=== PATIENT | female | born 1975 | race Caucasian/White ===

== ENCOUNTER 2021-01-27 14:51 | Emergency (ER) | payer OTHER, SELFPAY ==
--- NOTE | ~2021-01-27 | XR_ITS ---
EXAMINATION: XR foot RT min 3V DATE: 01/27/2021 15:08 INDICATION: Right foot pain. Fall. TECHNIQUE: 4 views of right foot were obtained. COMPARISON: None. FINDINGS: There is a fracture of medial base of second proximal phalanx involving 1/10 of the articul ar surface with less than 2 mm distraction. Joint spaces are normal. IMPRESSION: 1. Fracture of medial base of second proximal phalanx. Reviewed, dictated and finalized at location A.
[2021-01-27 14:56] VITALS: BP 128/64; PULSE 82; RESP 16; TEMP 36.6; O2SAT 100
--- NOTE | 2021-01-27 15:31 | ED.LOWEXIN ---
HPI - Extremity Injury (Lower) General Chief Complaint: Extremity Injury, Lower Stated Complaint: PAIN TO R TOES Time Seen by Provider: 01/27/21 15:15 Source: patient and RN notes reviewed Mode of arrival: ambulatory Limitations: no limitations History of Present Illness HPI Narrative: Patient presents today complaint of right second toe pain. Patient tripped and fell last night, injuring her foot. She has been ambulatory since the injury, but is primarily flexing her foot to walk on her heel. She does report some tingling to her foot. She is currently pain-free and has applied ice for symptoms. She has tried no [id number] medication prior to arrival. MD complaint: foot injury Related Data Home Medications Medication Instructions Recorded Confirmed No Home Medications 01/27/21 01/27/21 Allergies Allergy/AdvReac Type Severity Reaction Status Date / Time No Known Allergies Allergy Verified 04/05/17 11:18 Review of Systems Review of Systems: CONSTITUTIONAL: Denies body aches, fever, chills, or sweats. EYES: Denies visual changes, redness, or discharge. ENT: Denies rhinorrhea, congestion, sore throat, or otalgia. CARDIOVASCULAR: Denies chest pain, palpitations, or edema. RESPIRATORY: Denies cough or dyspnea. GASTROINTESTINAL: Denies abdominal pain, nausea, vomiting, or diarrhea. GENITOURINARY: Denies dysuria or hematuria. SKIN: Denies rash, itching, or wounds. MUSCULOSKELETAL: Denies back pain, or myalgia.+ Right second toe injury NEUROLOGIC: Denies headache, numbness, or weakness.+ Right foot tingling PSYCH: Denies depression or anxiety. PMFSH Comments At time of signature, I have reviewed and agree with nursing past medical, surgical, social and family history unless otherwise noted. Please see nursing chart for further information. There is no relevant family history pertinent to the presenting complaint Exam Narrative: GENERAL: Well-appearing, well-nourished, and in no acute distress. HEAD: Normocephalic, atraumatic. EYES: EOMI. No redness or drainage. Conjunctivae normal. ENT: Mucous membranes pink and moist. NECK: Normal AROM. CHEST: No respiratory distress. EXTREMITIES: Right foot: Bruising to the second toe with mild edema. Dime size bruising to the distal third metatarsal area. Distal sensation intact in all 5 toes. Capillary refill normal. Pedal pulse normal. Full range of motion of all toes. SKIN: Warm, dry, no rash. Capillary refill normal. Normal skin turgor. NEURO: No focal deficits. Alert and oriented x3. Gait steady. PSYCH: Normal affect. No signs of depression or anxiety. Course Vital Signs Vital signs: Vital Signs Temperature 97.8 F 01/27/21 14:56 Pulse Rate 82 01/27/21 14:56 Respiratory Rate 16 01/27/21 14:56 Blood Pressure 128/64 01/27/21 14:56 Pulse Oximetry 100 01/27/21 14:56 Temperature 97.8 F 01/27/21 14:56 Pulse Rate 82 01/27/21 14:56 Respiratory Rate 16 01/27/21 14:56 Blood Pressure 128/64 01/27/21 14:56 Pulse Oximetry 100 01/27/21 14:56 Reviewed. Pt has been instructed to follow up with her PCP regarding her elevated blood pressure today. Procedures Orthopedic Splinting/Casting Injury #1: Splinting/Casting Date: 01/27/21 Splinting/Casting Time: 15:36 Side: right Lower Extremity Injury Location: toe Pre-Formed: post op shoe and other (Avery tape) Pre-Procedure Neuro Vascular Exam: normal Post-Procedure Neuro Vascular Exam: normal Additional Comments: Applied by tech. MDM - Extremity Injury (Lower) Differential Diagnosis Differential diagnosis: Likely fracture of toe and other (Toe sprain, contusion) Imaging Data Radiologist's impression: ITS Impressions Foot X-Ray 01/27/21 15:10 IMPRESSION: 1. Fracture of medial base of second proximal phalanx. Critical Care Time Critical Care Time Critical Care Time: No Discharge Plan Discharge Clinic
== END 2021-01-27 15:49 | disposition home or self-care (01) ==
PROVIDERS: Emergency Provider Nurse Practitioner
DX: S92.511A Displaced fracture of proximal phalanx of right lesser toe(s), initial encounter for closed fracture (principal); W01.0XXA Fall on same level from slipping, tripping and stumbling without subsequent striking against object, initial encounter
CPT/HCPCS: 73630; 99214; G0463